=== PATIENT | male | born 1980 | race Caucasian/White ===

== ENCOUNTER 2025-02-04 12:17 | Outpatient (CLI) | payer SELFPAY ==
--- NOTE | 2025-02-04 20:59 | RADIOLOGY REPORT ---
Procedure: MR MRI LOWER EXTREMITY LEFT 02/04/2025 12:34 PM Indication: PAIN IN LEFT HIP COMPARISON: None TECHNIQUE: MRI of the left hip was performed utilizing multiple appropriate imaging planes and pulse sequences. FINDINGS: Hip Joint: The coronal images of the pelvis with views of the bilateral hips demonstrate bilateral fe moral head avascular necrosis with evidence of crescent sign without depression of the articular surf enrrique reflecting stage III AVN bilaterally. The the bilateral hip joint spaces are maintained. Mild ma rginal bilateral acetabular osteophytosis. No evidence of femoroacetabular impingement bilaterally. M oderate bilateral hip joint effusions. No loose body is identified Acetabular Labrum: Grossly unremarkable in this nonarthrographic examination. Hamstring tendons: Unremarkable. Quadriceps tendons: Unremarkable. Gluteal tendons: Unremarkable. No evidence of significant tendinosis or tendon tear. No trochanteric bursitis. Iliopsoas tendons: Unremarkable. No evidence of iliopsoas bursitis. Sciatic nerve: Unremarkable. Bone marrow: Unremarkable. Other: Mild degenerative changes of the bilateral sacroiliac joints noted.. IMPRESSION: 1. 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 2. Moderate bilateral hip joint effusions.
== END 2025-02-04 23:59 | disposition home or self-care (01) ==
LOC: MRI02 12:17
PROVIDERS: ATTEND Physician Assistant
DX: M46.1 Sacroiliitis, not elsewhere classified (principal); M25.451 Effusion, right hip; M25.552 Pain in left hip; M25.452 Effusion, left hip; M87.9 Osteonecrosis, unspecified; M87.88 Other osteonecrosis, other site
CPT/HCPCS: 73721

== ENCOUNTER 2025-02-06 15:22 | Inpatient (IN) | payer SELFPAY ==
[~2025-02-06] VITALS: Ht 180.3 cm; Wt 79.6 kg
[2025-02-06 16:10] LABS: BASOPHILS % (AUTO) 0.3 % (0-1); EOSINOPHILS % (AUTO) 0.5 % (0-6); HEMATOCRIT 44.2 % (42.0-52.0); LYMPHOCYTES # (AUTO) 1.5 X10'3 (1.1-4.8); LYMPHOCYTES % (AUTO) 19.2 % (21-51); MEAN CORPUSCULAR HEMOGLOBIN 31.5 PG (27.0-31.0); MEAN CORPUSCULAR VOLUME 92.7 FL (78-98); MONOCYTES # (AUTO) 0.6 X10'3 (0-0.9); MONOCYTES % (AUTO) 8.4 % (2-12); NEUTROPHILS # (AUTO) 5.5 X10'3 (1.8-7.7); NEUTROPHILS % (AUTO) 71.6 % (42-75); PLATELET COUNT 192 X10'3 (140-440); RED BLOOD COUNT 4.77 X10'6 (4.70-6.10); RED CELL DISTRIBUTION WIDTH 13.7 % (11.5-14.5); WHITE BLOOD COUNT 7.6 X10'3 (4.5-11.0)
[2025-02-06 16:25] LABS: ALANINE AMINOTRANSFERASE 219 U/L (12-78); ALBUMIN 4.2 G/DL (3.4-5.0); ALBUMIN/GLOBULIN RATIO 1.2 (1.1-1.5); ALKALINE PHOSPHATASE 77 IU/L (46-116); ANION GAP 14 (8-16); ASPARTATE AMINO TRANSFERASE 205 U/L (10-37); BILIRUBIN,TOTAL 0.4 MG/DL (0.1-1.0); BLOOD UREA NITROGEN 13 MG/DL (7-18); BUN/CREATININE RATIO 17.6 (10.0-20.0); CALCIUM 8.9 MG/DL (8.5-10.1); CHLORIDE 100 MMOL/L (99-107); CREATININE 0.74 MG/DL (0.60-1.10); ETHANOL 13 MG/DL (<10); GLUCOSE 144 MG/DL (70-104); LIPASE 26 U/L (16-77); POTASSIUM 3.7 MMOL/L (3.5-5.1); SODIUM 141 MMOL/L (135-145); TOTAL CARBON DIOXIDE 26.8 MMOL/L (24-32); TOTAL PROTEIN 7.8 G/DL (6.4-8.2); eCRCL 137 ML/MIN; eGFR > 90 ML/MIN
[2025-02-06] MEDS ORDERED: pantoprazole 40mg IV 80 MG in normal saline 100ml IV soln 100 ML IV ONE (16:25)
[2025-02-06 16:34] LABS: OCCULT BLOOD STOOL POSITIVE (Neg)
--- NOTE | 2025-02-06 16:39 | Physician Documentation ---
History of Present Illness ~ Chief Complaint: Bloody Emesis Stated Complaint: VOMITING BLOOD Time Seen by MD: 16:24 HPI 44-year-old male presenting with bloody vomiting that started earlier this morning. The patient reports that he has been drinking heavily over the past several weeks especially over the last couple of days where he has been drinking nearly a half bottle of vodka per day. He states that he has chronic and worsening hip pain and does not like to take pain medication so he has been drinking more than usual. He reports that this morning while at a he started feeling very nauseated and had several episodes of bloody emesis. He states that over the past couple of days he has had other episodes as well which have progressively become more and more bloody. He states that his last drink of alcohol was last night about 9:00 p.m.. No reports of any fever, chills or any other associated symptoms. Medication Reconciliation Allergies: Coded Allergies: No Known Allergies (Unverified , 02/06/25) Past Medical History Past Medical History: No Pertinent History Review of Systems All Other Systems at this time: Reviewed and Negative Physical Exam Vital Signs: Temperature: 98.6, Source: Oral, Heart Rate: 87, Respiratory Rate: 16, BP: 176/107, Pulse Oximetry: 96, Weight: 79.600 Oxygen Flow Rate: 0 Physical Exam I have reviewed the triage vitals. CONST: Well developed and well nourished. In no acute distress HENT: Head Atraumatic EYES: Pupils are equal, round and reactive to light. Normal conjunctiva NECK: Normal range of motion. Supple. CARDIO: Normal rate and regular rhythm. No murmurs, rubs, or gallops. S1, S2. PULM/CHEST: No respiratory distress. Lungs clear to auscultation. No wheeze ABD: Soft and mildly tender over the epigastrium and right upper quadrant. Nondistended. Bowel sounds normal. No guarding. : Exam deferred MSK: No edema. No deformity. NEURO: Alert and oriented to person, place and time. Moving all extremities SKIN: Warm and dry. PSYCH: Normal mood and affect. Good eye contact. Progress Results/Orders Results/Orders Orders - YANIV REEVES MD Page Hospitalist (02/06/25 20:25) Completed Orders - YANIV REEVES MD Diazepam Inj (Valium Inj) (02/06/25 20:25) Normal Saline 1000ml (Sodium Chloride 10 (02/06/25 20:25) Medications Received in ER Medications (Trade) Dose Ordered Sig/Ree Route PRN Reason Start Time Stop Time Status Last Admin Dose Admin (Protonix 40mg IV) 80 mg ONCE ONCE IV 02/06/25 16:30 02/06/25 16:31 DC 02/06/25 17:14 80 MG (Zofran 4mg/2ml vial) 4 mg ONCE ONCE IV 02/06/25 16:35 02/06/25 16:37 DC 02/06/25 17:06 4 MG Sodium Chloride 1,000 ml @ 1,000 mls/hr ONCE ONCE IV 02/06/25 16:35 02/06/25 17:34 DC 02/06/25 17:06 1,000 MLS/HR (thiamine inj.) 100 mg ONCE ONCE IV 02/06/25 16:35 02/06/25 16:37 DC 02/06/25 17:14 100 MG (folic acid inj.) 1 mg ONCE ONCE IV 02/06/25 16:35 02/06/25 16:37 DC 02/06/25 19:10 1 MG (Valium inj) 5 mg ONCE ONCE IV 02/06/25 16:35 02/06/25 16:37 DC 02/06/25 17:08 5 MG (Valium inj) 5 mg ONCE ONCE IV 02/06/25 20:25 02/06/25 20:33 DC 02/06/25 20:42 5 MG Sodium Chloride 1,000 ml @ 1,000 mls/hr ONCE ONCE IV 02/06/25 20:25 02/06/25 21:24 DC 02/06/25 20:42 1,000 MLS/HR (Zofran 4mg/2ml vial) 4 mg Q6H PRN IV nausea/vomiting 02/06/25 21:00 02/06/25 23:48 4 MG Sodium Chloride 1,000 ml @ 100 mls/hr Q10H IV 02/06/25 21:00 02/06/25 21:50 100 MLS/HR (thiamine inj.) 200 mg TID IV 02/06/25 21:00 02/09/25 20:59 02/06/25 21:28 200 MG (Ativan tablet) 2 mg Q2H PRN PO for anxiety/agitation 02/06/25 21:00 02/09/25 20:59 02/06/25 23:44 2 MG (Librium capsule) 25 mg BID PO 02/06/25 21:00 02/06/25 21:28 25 MG Vital Signs 02/06/25 02/06/25 02/06/25 02/06/25 15:30 16:00 16:00 19:14 Temp 98.6 98.6 Pulse 87 76 88 Resp 16 18 15 15 B/P (MAP) 176/107 148/99 (115) 132/90 (104) Pulse Ox 96 97 99 O2 Flow Rate 0 0 02/06/25 19:59 Pulse 71 Resp 16 B/P (MAP) 149/93 (111) Pulse Ox 99 Laboratory Tests Test 02/06/25 15:48 02/06/25 19:16 White Blood Count 7.6 Red Blood Count 4.77 Hemoglobin 15.0 Hematocrit 44.2 Mean Corpuscular Volume 92.7 Mean Corpuscular Hemoglobin 31.5 H Mean Corpuscular Hemoglobin Concent 34.0 Red Cell Distribution Width 13.7 Platelet Count 192 Mean Platelet Volume 8.0 Neutrophils (%) (Auto) 71.6 Lymphocytes (%) (Auto) 19.2 L Monocytes (%) (Auto) 8.4 Eosinophils (%) (Auto) 0.5 Basophils (%) (Auto) 0.3 Neutrophils # (Auto) 5.5 Lymphocytes # (Auto) 1.5 Monocytes # (Auto) 0.6 Eosinophils # (Auto) 0.0 Basophils # (Auto) 0.0 CBC Comment Stool Occult Blood Positive H Sodium Level 141 Potassium Level 3.7 Chloride Level 100 Carbon Dioxide Level 26.8 Anion Gap 14 Blood Urea Nitrogen 13 Creatinine 0.74 Estimated GFR/1.73 m2 > 90 BUN/Creatinine Ratio 17.6 Glucose Level 144 H Calcium Level 8.9 Total Bilirubin 0.4 Aspartate Amino Transf (AST/SGOT) 205 H Alanine Aminotransferase (ALT/SGPT) 219 H Alkaline Phosphatase 77 Total Protein 7.8 Albumin 4.2 Globulin 3.6 Albumin/Globulin Ratio 1.2 Lipase 26 Chemistry Comments Ethyl Alcohol Level 13 H Urine Specimen Description Cln catch midstream Urine Color Yellow Urine Clarity Clear Urine pH 8.0 Urine Specific [place] 1.015 Urine Protein Trace Urine Glucose (UA) Negative Urine Ketones Trace H Urine Occult Blood Negative Urine Nitrite Negative Urine Bilirubin Negative Urine Urobilinogen 0.2 Urine Leukocyte Esterase Negative Urine RBC None seen Urine WBC 0-4 Urine Squamous Epithelial Cells Few Urine Bacteria None seen Urine Culture Indicated Not ind Volume Urine Centrifuged 10 ml Urine Comment EKG/XRAY/CT/US/VASC/MRI EKG : Additional Comment EKG as interpreted by myself indicates normal sinus rhythm, normal axis no signs of ischemia, rate of 83 beats per minute Addendum I received sign-out on this patient at shift change, please see the previous provider's information for a full history and exam. Briefly: Vomiting blood, guaiac positive stool, history of alcohol abuse, pending CT scan and admission. CT scan: I reviewed the patient's CT scan, which shows no evidence of bowel obstruction, free air, or evidence of perforated ulcer. Re-evaluation: The patient was lying in bed, denies any further vomiting. On my exam he is tremulous and has tongue fasciculations concerning for alcohol withdrawal. I discussed the results of his testing and plan for admission. He was given Valium and IV fluids for his withdrawal symptoms. Consult: I spoke to the internal medicine service, for admission in the hospital Yaniv Reeves MD Departure Impression: Primary Impression: Hematemesis Additional Impression: Alcohol withdrawal Referrals: NO PRIMARY CARE PROVIDER (PCP) Signature Scribe Signature: 1 Attestation: 1 SHAGUFTA ARECHIGA MD Feb 06, 2025 16:39 YANIV REEVES MD Feb 07, 2025 00:07
[2025-02-06] MEDS: ondansetron/PF 4mg/2ml inj IV ONE (17:06)
[2025-02-06] MEDS: normal saline 1000ml 1,000 ML IV ONE ×2 (17:06→20:42)
[2025-02-06] MEDS: diazepam inj 5 MG/ML inj. IV ONE ×2 (17:08→20:42)
[2025-02-06] MEDS: thiamine 100mg/ml 2ml inj. IV ONE (17:14)
[2025-02-06] MEDS: pantoprazole 40 MG vial IV ONE (17:14)
--- NOTE | 2025-02-06 18:14 | RADIOLOGY REPORT ---
Exam: CT CT ABDOMEN PELVIS History: hematemesis Comparison Study: None available at time of dictation. TECHNIQUE: Multidetector CT of the abdomen was performed from lung bases to pubic symphysis. Imaging was performed without IV contrast. Axial, coronal and sagittal multiplanar reformats were obtained fr om the axial data set by the technologist. Radiation Dose Information: CT Dose: CTDI volume is 15.39 mGy. Dose-length product is 897.22 mGy*cm FINDINGS: Evaluation of solid organs is limited due to lack of intravenous contrast use. Findings: Lung Bases: No acute or significant lung base finding. Normal heart size. No pleural or pericardial effusion. Liver: The liver is normal in size. No focal lesions. Hepatic steatosis Gallbladder and Biliary Tree: Unremarkable Spleen: Unremarkable Pancreas: The pancreas is grossly normal in appearance. Adrenal Glands: Unremarkable Kidneys: Kidneys are grossly normal without calculi or hydronephrosis. Bladder: Grossly unremarkable for degree of distention. Bowel: The stomach demonstrates diffusely thickened wall ( 16 mm), however no oral contrast was give n. Small bowel and colon are normal in caliber and distribution. The appendix is not visualized; how ever, no secondary findings of acute appendicitis identified. Ascites: Absent Lymphadenopathy: No mesenteric, retroperitoneal or periportal lymphadenopathy. Abdominal Wall and Mesentery: Unremarkable. Vasculature: The visualized abdominal aorta is normal in size and caliber. Evaluation of abdominal a nd pelvic vessels is limited due to lack of intravenous contrast. Pelvic Organs: Unremarkable Musculoskeletal: No aggressive focal bony lesions, acute fractures or dislocation. Soft tissues: Unremarkable IMPRESSION: 1. Gastric wall thickening measures 16 mm however stomach is contracted and there is no oral contrast . 2. No findings of bowel obstruction. 3. No nephrolithiasis or hydronephrosis 4. Findings consistent with hepatic steatosis HS:Y Radiation optimization: All CT scans at this facility use at least one of these dose optimization era hniques: automated exposure control mA and/or kV adjustment per patient size (includes targeted exam s where dose is matched to clinical indication) or iterative reconstruction.
[2025-02-06] MEDS: folic acid 1mg/0.2ml inj IV ONE (19:10)
[2025-02-06 19:44] LABS: BILIRUBIN,URINE NEGATIVE (Neg); CLARITY,URINE CLEAR (Clear); COLOR,URINE YELLOW (Yellow); GLUCOSE, URINE NEGATIVE (Neg); KETONES,URINE TRACE mg/dl (Neg); LEUKOCYTE ESTERASE ,URINE NEGATIVE (Neg); NITRITES, URINE NEGATIVE (Neg); OCCULT BLOOD,URINE NEGATIVE (Neg); PROTEIN,URINE TRACE mg/dl (Neg); UROBILINOGEN,URINE 0.2 E.U/dL (0.2-1.0)
[2025-02-06 19:48] LABS: UA COLLECTION TYPE CLN CATCH MIDSTREAM
[2025-02-06 19:50] LABS: BACTERIA,URINE NONE SEEN /HPF (Neg); RBC,URINE NONE SEEN /HPF (0-2); SQUAMOUS EPITHELIAL CELL,UR FEW /LPF (FEW); WBC,URINE 0-4 /HPF (0-4)
[2025-02-06] MEDS ORDERED: magnesium hydroxide 30ml (MOM) UD suspension PO PRN (21:00)
[2025-02-06] MEDS ORDERED: potassium Cl 40MEQ/1/2NS 520ml 520 ML IV PRN (21:00)
[2025-02-06] MEDS ORDERED: potassium Cl 20 mEq SR tablet PO PRN ×2 (21:00)
[2025-02-06] MEDS ORDERED: HYDROcodone/acetaminophen 5mg/325mg tablet PO PRN (21:00)
[2025-02-06] MEDS ORDERED: dextrose 50%-water 50ml dispensing syringe IV PRN (21:00)
[2025-02-06] MEDS ORDERED: mag hydrox/Alum hydrox/simeth 30ml oral suspension PO PRN (21:00)
[2025-02-06] MEDS ORDERED: haloperidol 5mg tablet PO PRN (21:00)
[2025-02-06] MEDS ORDERED: pantoprazole 40MG/NS 100ML BAG 100 ML IV SCH (21:00)
[2025-02-06] MEDS ORDERED: acetaminophen 325mg tablet PO PRN (21:00)
[2025-02-06] MEDS ORDERED: magnesium Cl slow-release 64mg tablet PO PRN (21:00)
[2025-02-06] MEDS ORDERED: haloperidol lactate 5mg/ml inj IM PRN (21:00)
[2025-02-06] MEDS ORDERED: magnesium sulf-water 4G/100mL 100 ML IV PRN (21:00)
[2025-02-06] MEDS ORDERED: magnesium sulf-water 2g/50mL 50 ML IV PRN (21:00)
[2025-02-06] MEDS ORDERED: morphine 2 MG/ML inj. syringe IV PRN (21:00)
--- NOTE | 2025-02-06 21:11 | HISTORY AND PHYSICAL-Residence ---
History & Physical Providers to CC Resident Creating Document: BRIAN ORTEGA, RES CC: ROGELIO PRESTON Jr. DO ~ History of Present Illness Primary Medical Doctor: none Reason for Admit\Complaint: Hematemesis History of Present Illness A 44-year-old male with no past medical history presented to the ED after four episodes of bloody emesis since today morning. Patient endorses nausea, feeling on the edge. Patient was attending his 's father's where and therefore a lot of people in the room and it was heart. Patient would feel nauseous if he stood up but was feeling okay when he lied down. Patient endorses heartburn in the chest which has been persistent with a severity of 1/. Patient denies melena or acid reflux. Patient denies abdominal pain. Patient never underwent upper GI endoscopy but underwent colonoscopy at the age of 14 in view of evaluation for a long period of illness of unknown cause. Patient was consumed three drinks of vodka yesterday. Patient has been consuming a lot of alcohol which could be described as completing a bottle of vodka in four days to relieve pain in his hip for over 20 days now. Allergies: Coded Allergies: No Known Allergies (Unverified , 02/06/25) Past Medical History Past Medical History None Past Surgical History Surgical History Comment Knee surgery (right) Past Social History Social History Comment Lives at home with Works as an electrician shop Smokes about 1-2 cigars per day Consumes marijuana gummies once in every three months Consumes a bottle of vodka in four days for the last 20 days ROS ROS All other systems negative except for the pertinent positives mentioned in the HPI Exam Vitals: Vital Signs Date Time Temp Pulse Resp B/P (MAP) Pulse Ox O2 Delivery O2 Flow Rate FiO2 02/06/25 19:59 71 16 149/93 (111) 99 02/06/25 16:00 98.6 0 General: General: Alert, awake, oriented, not in acute distress HEENT: PERRLA, no icterus, pallor, lymphadenopathy, carotid bruit Respiratory system: Bilateral vesicular breath sounds heard, no adventitious breath sounds CVS: S1-S2 heard, no murmurs/rubs/gallop GI: Mild tenderness present in the upper epigastrium, Soft, no organomegaly, no guarding/rigidity, bowel sounds present Neuro: No focal neurological deficits present Extremities: Tremors present in bilateral upper arms. No edema cyanosis clubbing Musculoskeletal: No deformities Skin: Warm and dry Psych: Normal mood and affect Diagnostic Data Last Recorded Lab Results: 02/06/25 1548 02/06/25 1548 Advance Care Planning Advanced Care plannin - 30 Minutes (I spent 20 minutes discussing various resuscitative measures and the patient decided to be full code) Additional Plan Assessment: A 44-year-old male with no past medical history presented to the ED with four episodes of hematemesis. Patient was admitted for the management and evaluation of upper GI bleed. Plan: Possible upper GI bleed 2/2 alcohol-induced gastritis H/H stable, vitals stable FOBT: Positive, elevated ethyl alcohol Transfuse if HGB less than seven IV Protonix drip GI consult in a.m. NPO Alcohol withdrawal On mild alcohol withdrawal protocol IV thiamine, folic acid, MVT Librium 25 mg b.i.d. web services architect negro's Elevated transaminases CT abdomen: Gastric wall thickening measures 16 mm however stomach is contracted and there is no oral contrast. Findings consistent with hepatic steatosis Possibly secondary to hepatic steatosis Follow up with GGT, hip viral panel Tobacco use disorder Nicotine patch Med rec pending Code status: Full code Diet: NPO DVT prophylaxis: SCD Disposition: Admit to ortho, GI consult in a.m. Brian Ortega MD Internal Medicine, PGY 1 Nocturnal manager intermediate attestation of resident HP. Attestation of HP only, care immediately directed to hospitalist team - ETOH - BID PPI - GI eval, outpt EGD - Berry for DVT Patient seen through remote audiovisual assessment through HIPAA compliant setup. All labs, flowsheets, and images reviewed Date of Service: Feb 06, 2025 Billing Provider: ROGELIO PRESTON Jr. DO BRIAN ORTEGA, RES Feb 06, 2025 21:11 ROGELIO PRESTON Jr. DO Feb 07, 2025 04:14
[2025-02-06] MEDS: pantoprazole 40MG/NS 100ML BAG 100 ML IV SCH (21:28)
[2025-02-06] MEDS: chlordiazePOXIDE 25mg capsule PO SCH (21:28)
[2025-02-06] MEDS: thiamine 100mg/ml 2ml inj. IV SCH (21:28)
[2025-02-06] MEDS: nicotine 14mg patch - 24hr TD ONE (21:48)
[2025-02-06] MEDS: normal saline 1000ml 1,000 ML IV SCH (21:50)
[2025-02-06 23:38] VITALS: BP 163/92; PULSE 66; RESP 18; TEMP 98.9; O2SAT 100
[2025-02-06] MEDS: LORazepam 1 MG tablet PO PRN (23:44)
[2025-02-06] MEDS: ondansetron/PF 4mg/2ml inj IV PRN (23:48)
[2025-02-07] VITALS (7 sets, daily range): BP systolic 140–157; BP diastolic 90–104; PULSE 57–70; RESP 16–18; TEMP 97.5–98.3; O2SAT 98–100
[2025-02-07] MEDS ORDERED: diazepam inj 5 MG/ML inj. IV PRN ×3 (00:25→10:20)
[2025-02-07 06:07] LABS: BASOPHILS % (AUTO) 0.5 % (0-1); EOSINOPHILS # (AUTO) 0.1 X10'3 (0-0.9); EOSINOPHILS % (AUTO) 2.5 % (0-6); HEMATOCRIT 42.4 % (42.0-52.0); HEMOGLOBIN 14.2 g/dl (14.0-17.9); LYMPHOCYTES # (AUTO) 1.4 X10'3 (1.1-4.8); LYMPHOCYTES % (AUTO) 28.2 % (21-51); MEAN CORPUSCULAR HEMOGLOBIN 31.2 PG (27.0-31.0); MEAN CORPUSCULAR HGB CONC 33.6 g/dL (33.0-36.5); MEAN PLATELET VOLUME 8.4 FL (7.4-10.4); MONOCYTES # (AUTO) 0.6 X10'3 (0-0.9); MONOCYTES % (AUTO) 12.5 % (2-12); NEUTROPHILS # (AUTO) 2.8 X10'3 (1.8-7.7); NEUTROPHILS % (AUTO) 56.3 % (42-75); PLATELET COUNT 166 X10'3 (140-440); RED BLOOD COUNT 4.56 X10'6 (4.70-6.10); RED CELL DISTRIBUTION WIDTH 13.5 % (11.5-14.5)
[2025-02-07 06:22] LABS: ALBUMIN 3.2 G/DL (3.4-5.0); ANION GAP 8 (8-16); BLOOD UREA NITROGEN 10 MG/DL (7-18); BUN/CREATININE RATIO 14.5 (10.0-20.0); CALCIUM 8.4 MG/DL (8.5-10.1); CHLORIDE 102 MMOL/L (99-107); CREATININE 0.69 MG/DL (0.60-1.10); GLUCOSE 73 MG/DL (70-104); MAGNESIUM 1.9 MG/DL (1.5-2.4); PHOSPHORUS 2.5 MG/DL (2.3-4.5); POTASSIUM 3.5 MMOL/L (3.5-5.1); SODIUM 140 MMOL/L (135-145); TOTAL CARBON DIOXIDE 29.6 MMOL/L (24-32); eCRCL 147 ML/MIN; eGFR > 90 ML/MIN
--- NOTE | 2025-02-07 06:34 | ELECTROCARDIOGRAPH REPORT ---
[facility] Test Date: 2025-02-06 Test Time: 15:34:32 Pat Name: YVONNE BURKETT Department: EMERGENCY ROOM Room: [place] [address] B Gender: M Manager Quantitative: ELVIS : 1980 Requested By: SHAGUFTA ARECHIGA Order Number: [id number] Reading MD: Dr. Eder Abrams Measurements Intervals [place] Rate: 83 P: 72 MO: 119 QRS: 42 QRSD: 99 T: 59 QT: 388 QTc: 456 Interpretive Statements Sinus rhythm Borderline short MO interval Abnormal R-wave progression, early transition Electronically Signed On 02-07-2025 19:02:[address] Eder Abrams Please click the below link to view image of tracing.
[2025-02-07] MEDS: K and/or MAG REPLACEMENT MC SCH (08:00)
[2025-02-07] MEDS: multivitamins, therapeutics tablet PO SCH (08:42)
[2025-02-07] MEDS: docusate sod 100mg capsule PO SCH (08:44)
[2025-02-07] MEDS: folic acid 1mg/0.2ml inj IV SCH (08:46)
[2025-02-07] MEDS ORDERED: LORazepam 1 MG tablet PO PRN (10:20)
[2025-02-07] MEDS ORDERED: NO HOME MEDS (14:11)
[2025-02-07 15:00] LABS: HEMATOCRIT 42.4 % (42.0-52.0); HEMOGLOBIN 14.5 g/dl (14.0-17.9); MEAN CORPUSCULAR HEMOGLOBIN 31.7 PG (27.0-31.0); MEAN CORPUSCULAR HGB CONC 34.3 g/dL (33.0-36.5); MEAN CORPUSCULAR VOLUME 92.3 FL (78-98); MEAN PLATELET VOLUME 8.1 FL (7.4-10.4); PLATELET COUNT 159 X10'3 (140-440); RED BLOOD COUNT 4.59 X10'6 (4.70-6.10); RED CELL DISTRIBUTION WIDTH 13.3 % (11.5-14.5); WHITE BLOOD COUNT 4.6 X10'3 (4.5-11.0)
--- NOTE | 2025-02-07 19:51 | PROGRESS NOTE ---
Daily Progress Note Providers to CC ~ Antibiotic Timeout Antibiotic Ordered?: No Subjective Patient was seen in his room he denied any concerns regarding pain. He mentioned that he drinks because his left hip hurts. Detailed counseling done regarding risk and consequences of alcohol abuse in presence of his . Case discussed with GI specialist , he recommend to monitor hemoglobin and hematocrit no plan for EGD at this point of time. Objective Vital Signs Date Time Temp Pulse Resp B/P (MAP) Pulse Ox O2 Delivery O2 Flow Rate FiO2 02/07/25 10:00 97.5 66 17 147/95 (112) 99 Room Air 02/06/25 16:00 0 Result Diagram: 02/07/25 1451 02/07/25 0510 General-patient not in any acute distress, alert awake , age-appropriate HEENT-atraumatic normocephalic, neck supple without elevated JVD, no thyromegaly or carotid bruit. No lymphadenopathy bilaterally. Eyes-no icterus or pallor seen in eyes Chest-clear to auscultation bilaterally, breathing nonlabored no tachypnea, no wheezing, no crepitation, no crackles. Heart-S1-S2 normal, regular heart rate no murmur Abdomen bowel sounds positive on auscultation, soft nondistended nontender no guarding, no rigidity Skin no active skin rash Neurology-grossly intact, nonfocal alert awake oriented Extremity- no pedal edema able to move all 4 extremities Psychiatry - patient is not confused or agitated cooperated during physical examination Problem\Assessment\Plan A 44-year-old male with no past medical history presented to the ED with four episodes of hematemesis. Patient was admitted for the management and evaluation of upper GI bleed. Plan: Possible upper GI bleed 2/2 alcohol-induced gastritis H/H stable, vitals stable FOBT: Positive, elevated ethyl alcohol Transfuse if HGB less than seven Continue on IV Protonix drip Patient is started on clear liquid diet we will advance diet as tolerated Case discussed with GI specialist , he recommend to monitor hemoglobin and hematocrit no plan for EGD at this point of time. Alcohol withdrawal On mild alcohol withdrawal protocol IV thiamine, folic acid, MVT Librium 25 mg b.i.d. cargo and ramp services manager ordered Detailed counseling done regarding risk and consequences of alcohol abuse in presence of his Elevated transaminases CT abdomen: Gastric wall thickening measures 16 mm however stomach is contracted and there is no oral contrast. Findings consistent with hepatic steatosis Possibly secondary to hepatic steatosis Follow up with GGT, hip viral panel Tobacco use disorder Nicotine patch Code status: Full code Diet: NPO DVT prophylaxis: SCD Patient's current condition is guarded we will continue to follow patient in AM . Date of Service: Feb 07, 2025 Billing Provider: ALFREDO DANIEL MD Common Visit Codes: 44527-VNJ/OBS DISCH DAY >30min ALFREDO DANIEL MD Feb 07, 2025 19:51
[2025-02-08 04:17] LABS: BASOPHILS % (AUTO) 0.7 % (0-1); EOSINOPHILS # (AUTO) 0.2 X10'3 (0-0.9); EOSINOPHILS % (AUTO) 3.9 % (0-6); HEMATOCRIT 42.2 % (42.0-52.0); HEMOGLOBIN 14.6 g/dl (14.0-17.9); LYMPHOCYTES # (AUTO) 1.5 X10'3 (1.1-4.8); LYMPHOCYTES % (AUTO) 33.4 % (21-51); MEAN CORPUSCULAR HEMOGLOBIN 31.7 PG (27.0-31.0); MEAN CORPUSCULAR HGB CONC 34.5 g/dL (33.0-36.5); MEAN CORPUSCULAR VOLUME 91.9 FL (78-98); MEAN PLATELET VOLUME 8.5 FL (7.4-10.4); MONOCYTES # (AUTO) 0.5 X10'3 (0-0.9); NEUTROPHILS # (AUTO) 2.2 X10'3 (1.8-7.7); PLATELET COUNT 162 X10'3 (140-440); RED BLOOD COUNT 4.59 X10'6 (4.70-6.10); RED CELL DISTRIBUTION WIDTH 13.5 % (11.5-14.5); WHITE BLOOD COUNT 4.4 X10'3 (4.5-11.0)
[2025-02-08 04:38] LABS: ALBUMIN 3.3 G/DL (3.4-5.0); ANION GAP 8 (8-16); BLOOD UREA NITROGEN 10 MG/DL (7-18); BUN/CREATININE RATIO 12.5 (10.0-20.0); CALCIUM 8.6 MG/DL (8.5-10.1); CHLORIDE 102 MMOL/L (99-107); GLUCOSE 78 MG/DL (70-104); MAGNESIUM 1.9 MG/DL (1.5-2.4); PHOSPHORUS 2.9 MG/DL (2.3-4.5); POTASSIUM 3.6 MMOL/L (3.5-5.1); SODIUM 138 MMOL/L (135-145); eCRCL 127 ML/MIN; eGFR > 90 ML/MIN
[2025-02-08 07:00] VITALS: BP 153/101; PULSE 64; RESP 18; TEMP 97.6; O2SAT 100
[2025-02-08 07:11] LABS: HBSAG SCREEN Negative (Negative); HEP A AB, IGM Negative (Negative); HEP B CORE AB, IGM Negative (Negative); HEPATITIS C VIRUS ANTIBODY Non Reactive (Non Reactive)
[2025-02-08 07:33] VITALS: RESP 18; O2SAT 100
[2025-02-08 08:00] VITALS: RESP 18; O2SAT 98
[2025-02-08 08:21] LABS: GAMMA GLUTAMLY TRANSPEPTIDASE 76 IU/L (0-65)
[2025-02-08 10:00] VITALS: BP 143/96; PULSE 62; RESP 18; TEMP 98.4; O2SAT 100
[2025-02-08] MEDS ORDERED: thiamine tablet PO (14:03)
[2025-02-08] MEDS ORDERED: FOLI1TAB27 PO (14:03)
[2025-02-08] MEDS ORDERED: PANT40TA54 PO (14:03)
[2025-02-08] MEDS ORDERED: CHLO25CA10 PO (14:03)
[2025-02-08] MEDS ORDERED: MULT-25 PO (14:03)
[2025-02-08] MEDS ORDERED: NALT50TA5 PO (14:05)
--- NOTE | 2025-02-08 19:25 | DISCHARGE SUMMARY ---
Discharge Summary Providers to CC ~ Discharge Summary Admission Diagnosis: UPPER GI BLEED Hospital Course DATE OF ADMISSION: February 06, 2025 DATE OF DISCHARGE: February 08, 2025 CBC testing done on February 08, 2025 WBC 4.4 hemoglobin 14.6 hematocrit 42.2 platelet count 162. Serum chemistry done on February 08, 2025 sodium 138 potassium 3.6 creatinine 0.80 GFR greater than 90 GGT 76. AST 205 ALT 219 total bilirubin 0.4. Lipase 26. ethyl alcohol 13, hepatitis panel negative non reactive. Discharge Diagnosis\Comment: Possible upper GI bleed 2/2 alcohol-induced gastritis Alcohol withdrawal Elevated transaminases Tobacco use disorder Operations\Procedures: None Consultants: None Complications: None Condition on DC: Stable New Medications: Naltrexone Hcl (Naltrexone Hcl) 50 Mg Tablet 1 TAB PO DAILY for 30 Days, #30 TAB 0 Refills Pantoprazole Sodium (Pantoprazole Sodium) 40 Mg Tablet.dr 40 MG PO BKF for 30 Days, #30 TAB.SR Folic Acid* (Folic Acid*) Y Tab 1 MG PO DAILY for 30 Days, #30 TAB Multivitamin with Folic Acid (Thera Tablet) 400 Mcg Tablet 1 EACH PO Q24H for 30 Days, #30 TAB [thiamine tablet] () 100 MG TABLET 100 MG PO DAILY for 30 Days, #30 Discontinued Medications: Home Med List (No Home Medications) Each NS Discharge Summary: A 44-year-old male with no past medical history presented to the ED with four episodes of hematemesis. Patient was admitted for the management and evaluation of upper GI bleed. Plan: Possible upper GI bleed 2/2 alcohol-induced gastritis H/H stable, vitals stable FOBT: Positive, elevated ethyl alcohol Transfuse if HGB less than seven Continue on IV Protonix drip Patient is started on clear liquid diet we will advance diet as tolerated Case discussed with GI specialist , he recommend to monitor hemoglobin and hematocrit no plan for EGD at this point of time. Alcohol withdrawal On mild alcohol withdrawal protocol IV thiamine, folic acid, MVT Librium 25 mg b.i.d. consumer services consultant ordered Detailed counseling done regarding risk and consequences of alcohol abuse in presence of his Elevated transaminases CT abdomen: Gastric wall thickening measures 16 mm however stomach is contracted and there is no oral contrast. Findings consistent with hepatic steatosis Possibly secondary to hepatic steatosis Follow up with GGT, hip viral panel Tobacco use disorder Nicotine patch Patient's clinical condition improved and he was feeling much better. He is getting discharged home in stable condition. Patient is seen and examined on the day of discharge discharge instructions provided to the patient. All questions and concerns answered to the best of my professional medical knowledge. General-patient not in any acute distress, alert awake , age-appropriate HEENT-atraumatic normocephalic, neck supple without elevated JVD, no thyromegaly or carotid bruit. No lymphadenopathy bilaterally. Eyes-no icterus or pallor seen in eyes Chest-clear to auscultation bilaterally, breathing nonlabored no tachypnea, no wheezing, no crepitation, no crackles. Heart-S1-S2 normal, regular heart rate no murmur Abdomen bowel sounds positive on auscultation, soft nondistended nontender no guarding, no rigidity Skin no active skin rash Neurology-grossly intact, nonfocal alert awake oriented Extremity- no pedal edema able to move all 4 extremities, able to ambulate Psychiatry - patient is not confused or agitated cooperated during physical examination *Problems/Diagnosis: (1) Alcohol withdrawal Status: Acute Total Time Spent on D/C: > 30 Minutes Date of Service: Feb 08, 2025 Billing Provider: ALFREDO DANIEL MD Common Visit Codes: 24400-AXO/OBS DISCH DAY >30min ALFREDO DANIEL MD Feb 08, 2025 19:25
[2025-02-11] MEDS ORDERED: folic acid 1mg tablet PO SCH (08:00)
[2025-02-11] MEDS ORDERED: thiamine 100mg tablet PO SCH (08:00)
== END 2025-02-08 15:45 | disposition home or self-care (01) | DRG 378 ==
LOC: ER 15:22 → ED HOLD 21:04 → SUR 3N 23:20
PROVIDERS: ADMIT Internal Medicine Critical Care Medicine; ATTEND Internal Medicine
DX: K29.21 Alcoholic gastritis with bleeding (principal); F10.139 Alcohol abuse with withdrawal, unspecified; R74.01 Elevation of levels of liver transaminase levels; F17.210 Nicotine dependence, cigarettes, uncomplicated; Z79.899 Other long term (current) drug therapy; Y90.9 Presence of alcohol in blood, level not specified
CPT/HCPCS: 36415; 74176; 80048; 80053; 80074; 80320; 81001; 82272; 82948; 82977; 83690; 83735; 84100; 85025; 85027; 86885; 86900; 86901; 87081; 93005; 96361; 96365; 96375; 96376; 97110; 97116; 97161; 97530; 99285; G0378; J2405; J2470; J3360; J3411; J3490; J7030